=== PATIENT | male | born 1970 | race Hispanic/Latino ===

== ENCOUNTER 2022-05-27 14:07 | Inpatient (IN) | payer OTHER, BC ==
--- NOTE | 2022-05-27 14:37 | Emergency Department Report ---
ED Neuro Deficit HPI - General Chief Complaint: Headache Stated Complaint: WK COMP/LT SIDE NUMB Time Seen by Provider: 05/27/22 14:32 Source: patient, family, EMS ( EMS documentation not available at time of chart dictation ), RN notes reviewed Mode of arrival: Stretcher Limitations: Physical Limitation - History of Present Illness Initial Comments: The patient was evaluated in the emergency department for symptoms described in the history of present illness. He/she was evaluated in the context of the global COVID-19 pandemic, which necessitated consideration that the patient might be at risk for infection with the virus that causes COVID-19. In stitutional protocols and algorithms that pertain to the evaluation of patients at risk for COVID-19 are in a state of rapid change based on information released by regulatory bodies including the CDC and federal and state organizations. These policies and algorithms were followed during the patient's care in the emergency department. Please note that these policies, procedures and recommendations changed on a rapid basis. This patient is a 51-year-old gentleman. He reports a distant history of stroke, with prior left-sided weakness, which has since resolved. 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 Then, at approximately 11:30 AM, he developed left arm and left leg weakness and numbness. He reported a mild headache. Reportedly had normal Accu-Chek in the field. Patient denies recent trauma, surgery, hematemesis, bright red blood per rectum, systemic anticoagulation. He reports no contraindications to tPA. A code stroke was called overhead during my immediate evaluation of this patient. He was seen in consultation with stroke neurology, and we both agree that tPA is indicated. Extensive discussion had with patient and family member at the bedside, regarding risks, benefits of tPA, specifically, risk of hemorrhagic conversion and allergic reaction. Patient and family member provided verbal i nformed consent for tPA. I personally administered patient's tPA bolus at the bedside. The patient denies contraindications to tPA He is certain that his last known well time is 11:30 AM today. -: Sudden, hour(s) Location: left arm, left leg Presenting Symptoms: Present: Weak/Paralyzed One Side. Absent: Blurred/Loss of Vision, Unable to Speak Clearly, Altered Mental Status History of same: Yes Severity: moderate Quality: weak, numb Improves With: none Worsens With: none On Anticoagulants: No Context: sudden onset - Related Data Home Medications: Previous Rx's Medication Instructions Recorded Last Taken Type Cyclobenzaprine [Flexeril] 10 mg PO TID PRN #30 tablet 08/02/18 Unknown Rx Naproxen [Naprosyn] 500 mg PO BID #14 tablet 08/02/18 Unknown Rx Allergies/Adverse Reactions: Allergies Allergy/AdvReac Type Severity Reaction Status Date / Time No Known Allergies Allergy Unverified 08/02/18 19:32 ED Review of Systems ROS: Stated complaint: WK COMP/LT SIDE NUMB Other details as noted in HPI Constitutional: denies: fever Eyes: denies: eye discharge, vision change ENT: denies: epistaxis Respiratory: denies: cough Cardiovascular: denies: chest pain Gastrointestinal: denies: abdominal pain, hematemesis, melena, hematochezia Genitourinary: denies: hematuria Neurological: weakness, numbness Psychiatric: anxiety ED Past Medical Hx - Past Medical History Hx Hypertension: Yes Hx Diabetes: Yes Additional medical history: heart disease - Surgical History Additional Surgical History: bilateral knees - Social History Smoking Status: Never Smoker Substance Use Type: None - Medications Home Medications: Home Medications Medication Instructions Recorded Confirmed Last Taken Type Cyclobenzaprine [Flexeril] 10 mg PO TID PRN #30 tablet 08/02/18 Unknown Rx Naproxen [Naprosyn] 500 mg PO BID #14 tablet 08/02/18 Unknown Rx ED Neuro Physical Exam - General Limitations: Physical Limitation General appearance: alert, anxious, obese Suspected Stroke: Yes - Head Head exam: Present: atraumatic, normocephalic - Eye Eye exam: Present: normal appearance, EOMI, other (Visual acuity intact to finger counting and color perception at a close distance). Absent: nystagmus - ENT ENT exam: Present: normal exam, normal orophraynx, mucous membranes moist, normal external ear exam - Neck Neck exam: Present: normal inspection, full ROM. Absent: tenderness, meningismus - Respiratory Respiratory exam: Present: normal lung sounds bilaterally. Absent: respiratory distress, wheezes, rales, rhonchi, stridor, decreased breath sounds - Cardiovascular Cardiovascular Exam: Present: regular rate, normal rhythm, normal heart sounds. Absent: bradycardia, tachycardia, irregular rhythm, systolic murmur, diastolic murmur, rubs, gallop - GI/Abdominal GI/Abdominal exam: Present: soft. Absent: distended, tenderness, guarding, rebound, rigid - Rectal Rectal exam: Present: deferred - Extremities Exam Extremities exam: Present: normal inspection, full ROM (Right arm and right leg.), other (2+ pulses noted in the bilateral upper and lower extremities. Th ere is no palpable cord. negative Homans sign. Muscular compartments are soft. The pelvis is stable.). Absent: pedal edema, calf tenderness - Back Exam Back exam: Present: normal inspection. Absent: tenderness, CVA tenderness (R), CVA tenderness (L), paraspinal tenderness, vertebral tenderness - Neurological Exam Neurological exam: Present: alert, oriented X3, motor sensory deficit (There is decrease in station to light touch left arm and left leg. There is 4 out of 5 strength left arm and left leg.) - NIHSS Assessment Interval: Baseline 1a. Level of Consciousness: alert/keenly responsive 1b. LOC Questions: answers both correctly 1c. LOC Commands: performs tasks correctly 2. Best Gaze: normal 3. Visual: no visual loss 4. Facial Palsy: normal symmetrical movement 5b. Motor Arm Right: no drift 5a. Motor Arm Left: drift 6a. Motor Leg Left: drift 6b. Motor Leg Right: no drift 7. Limb Ataxia: absent 8. Sensory: mild/moderate sensory loss 9. Best Language: no aphasia 10. Dysarthria: normal 11. Extinction/Inattention: no abnormality Total Score: 3 Stroke Severity: Minor Stroke - Psychiatric Psychiatric exam: Present: anxious - Skin Skin exam: Present: warm, dry, intact, normal color. Absent: rash ED Course Vital Signs 05/27/22 05/27/22 05/27/22 14:16 14:31 15:09 Temperature 98.1 F Pulse Rate 71 65 69 Pulse Rate [ Right Arm] Respiratory 18 10 L 15 Rate Respiratory Rate [Right Arm ] Blood Pressure 174/87 Blood Pressure 160/90 [Left] Blood Pressure [Right Arm] O2 Sat by Pulse 97 Oximetry O2 Sat by Pulse Oximetry [ Right Arm] 05/27/22 05/27/22 05/27/22 15:15 15:30 15:31 Temperature Pulse Rate 66 59 L 58 L Pulse Rate [ 60 Right Arm] Respiratory 13 13 Rate Respiratory 16 Rate [Right Arm ] Blood Pressure 151/90 139/75 139/75 Blood Pressure [Left] Blood Pressure 151/80 [Right Arm] O2 Sat by Pulse 98 96 Oximetry O2 Sat by Pulse 96 Oximetry [ Right Arm] 05/27/22 05/27/22 05/27/22 15:45 16:06 16:08 Temperature Pulse Rate 57 L Pulse Rate [ 61 57 L Right Arm] Respiratory 19 Rate Respiratory 16 19 Rate [Right Arm ] Blood Pressure Blood Pressure 127/82 [Left] Blood Pressure 140/85 127/82 [Right Arm] O2 Sat by Pulse 96 Oximetry O2 Sat by Pulse 96 96 Oximetry [ Right Arm] 05/27/22 05/27/22 05/27/22 16:16 17:01 17:26 Temperature Pulse Rate Pulse Rate [ 52 L 52 L Right Arm] Respiratory Rate Respiratory 9 L 15 Rate [Right Arm ] Blood Pressure Blood Pressure [Left] Blood Pressure 127/76 154/82 [Right Arm] O2 Sat by Pulse 99 Oximetry O2 Sat by Pulse 98 100 Oximetry [ Right Arm] 05/27/22 05/27/22 05/27/22 18:00 18:30 19:13 Temperature Pulse Rate Pulse Rate [ 56 L 56 L 54 L Right Arm] Respiratory Rate Respiratory 14 13 14 Rate [Right Arm ] Blood Pressure Blood Pressure [Left] Blood Pressure 137/83 134/74 134/54 [Right Arm] O2 Sat by Pulse Oximetry O2 Sat by Pulse 100 100 99 Oximetry [ Right Arm] - Reevaluation(s) Reevaluation #1: 05/27/22 15:42 Assessment and plan: 51-year-old gentleman, who states that his last known well time is 11:30 AM this morning, presenting with left-sided weakness and numbness, and report of left-sided facial numbness. Patient denies contraindications to tPA. Risks and benefits discussed by myself, and by stroke neurology with patient and family member, who have consented for tPA administration for acute left-sided weakness, cannot exclude stroke. I personally administered tPA bolus, nursing team has administered drip, extensive discussion held with patient and family regarding potential for allergic reaction, and hemorrhagic transformation. Extensively discussed contraindications for tPA with patient and family members, and they are adamant that the patient has no contraindications to tPA. CT angiogram head and neck showed no large vessel occlusion or dissection. He does not require transfer to a comprehensive stroke center. CT scan of the brain is negative for bleeding. Hospital physician, Dr. Earl Cortés to admit to IMS/ICU Awaiting callback from critical care to coordinate admission to the ICU Reevaluation #2: 05/27/22 15:43 Patient did report an electric shock at 9:00 this morning. He reports that he was symptom-free at the electric shock for 2 to 2-1/2 hours. His muscular compartments are soft. No obvious conti noted on the bodies or extremity. Critical care physician, Dr. Contreras will follow in consultation with placement into the ICU. - Lab Data Result diagrams: 05/27/22 15:23 05/27/22 17:18 Lab Results 05/27/22 05/27/22 05/27/22 Range/Units 14:32 15:11 15:23 WBC 9.0 (4.5-11.0) K/mm3 RBC 4.32 (3.65-5.03) M/mm3 Hgb 14.1 (11.8-15.2) gm/dl Hct 40.3 (35.5-45.6) % MCV 93 (84-94) fl MCH 33 H (28-32) pg MCHC 35 H (32-34) % RDW 13.1 L (13.2-15.2) % Plt Count 183 (140-440) K/mm3 Lymph % (Auto) 26.3 (13.4-35.0) % [place] % (Auto) 6.6 (0.0-7.3) % Eos % (Auto) 1.7 (0.0-4.3) % Baso % (Auto) 0.5 (0.0-1.8) % Lymph # (Auto) 2.4 (1.2-5.4) K/mm3 [place] # (Auto) 0.6 (0.0-0.8) K/mm3 Eos # (Auto) 0.2 (0.0-0.4) K/mm3 Baso # (Auto) 0.0 (0.0-0.1) K/mm3 Seg Neutrophils % 64.9 (40.0-70.0) % Seg Neutrophils # 5.9 (1.8-7.7) K/mm3 PT (12.2-14.9) Sec. INR (0.87-1.13) APTT (24.2-36.6) Sec. Thrombin Time (15.1-19.6) Sec. Sodium Potassium Chloride Carbon Dioxide Anion Gap BUN Creatinine Estimated GFR BUN/Creatinine Ratio Glucose POC Glucose 201 H 137 H (70-105) mg/dL Calcium Magnesium Total Bilirubin AST ALT Alkaline Phosphatase Total Creatine Kinase CK-MB (CK-2) CK-MB (CK-2) Rel Index Troponin T Total Protein Albumin Albumin/Globulin Ratio Plasma/Serum Alcohol (0-0.07) % 05/27/22 05/27/22 05/27/22 Range/Units 15:23 15:23 15:23 WBC (4.5-11.0) K/mm3 RBC (3.65-5.03) M/mm3 Hgb (11.8-15.2) gm/dl Hct (35.5-45.6) % MCV (84-94) fl MCH (28-32) pg MCHC (32-34) % RDW (13.2-15.2) % Plt Count (140-440) K/mm3 Lymph % (Auto) (13.4-35.0) % Bos[place] % (Auto) (0.0-7.3) % Eos % (Auto) (0.0-4.3) % Baso % (Auto) (0.0-1.8) % Lymph # (Auto) (1.2-5.4) K/mm3 [place] # (Auto) (0.0-0.8) K/mm3 Eos # (Auto) (0.0-0.4) K/mm3 Baso # (Auto) (0.0-0.1) K/mm3 Seg Neutrophils % (40.0-70.0) % Seg Neutrophils # (1.8-7.7) K/mm3 PT 13.4 (12.2-14.9) Sec. INR 0.92 (0.87-1.13) APTT 26.6 (24.2-36.6) Sec. Thrombin Time 16.1 (15.1-19.6) Sec. Sodium TNR Potassium TNR Chloride TNR Carbon Dioxide TNR Anion Gap TNR BUN TNR Creatinine TNR Estimated GFR TNR BUN/Creatinine Ratio TNR Glucose TNR POC Glucose (70-105) mg/dL Calcium TNR Magnesium TNR Total Bilirubin TNR AST TNR ALT TNR Alkaline Phosphatase TNR Total Creatine Kinase TNR CK-MB (CK-2) TNR CK-MB (CK-2) Rel Index TNR Troponin T TNR Total Protein TNR Albumin TNR Albumin/Globulin Ratio TNR Plasma/Serum Alcohol < 0.01 (0-0.07) % 05/27/22 Range/Units 17:18 WBC (4.5-11.0) K/mm3 RBC (3.65-5.03) M/mm3 Hgb (11.8-15.2) gm/dl Hct (35.5-45.6) % MCV (84-94) fl MCH (28-32) pg MCHC (32-34) % RDW (13.2-15.2) % Plt Count (140-440) K/mm3 Lymph % (Auto) (13.4-35.0) % Bos[place] % (Auto) (0.0-7.3) % Eos % (Auto) (0.0-4.3) % Baso % (Auto) (0.0-1.8) % Lymph # (Auto) (1.2-5.4) K/mm3 [place] # (Auto) (0.0-0.8) K/mm3 Eos # (Auto) (0.0-0.4) K/mm3 Baso # (Auto) (0.0-0.1) K/mm3 Seg Neutrophils % (40.0-70.0) % Seg Neutrophils # (1.8-7.7) K/mm3 PT (12.2-14.9) Sec. INR (0.87-1.13) APTT (24.2-36.6) Sec. Thrombin Time (15.1-19.6) Sec. Sodium 140 Potassium 5.6 H Chloride 104.8 Carbon Dioxide 21 L Anion Gap 20 BUN 14 Creatinine 0.8 Estimated GFR > 60 BUN/Creatinine Ratio 18 Glucose 143 H POC Glucose (70-105) mg/dL Calcium 8.8 Magnesium 2.10 Total Bilirubin 0.30 AST 27 ALT 17 Alkaline Phosphatase 84 Total Creatine Kinase 128 CK-MB (CK-2) 2.2 CK-MB (CK-2) Rel Index 1.7 Troponin T < 0.010 Total Protein 7.2 Albumin 4.1 Albumin/Globulin Ratio 1.3 Plasma/Serum Alcohol (0-0.07) % Vital Signs 05/27/22 05/27/22 14:16 15:30 Temperature 98.1 F Pulse Rate 71 59 L Respiratory 18 Rate Blood Pressure 139/75 Blood Pressure 160/90 [Left] O2 Sat by Pulse 97 Oximetry Lab Results 05/27/22 05/27/22 05/27/22 Range/Units 14:32 15:11 15:23 WBC 9.0 (4.5-11.0) K/mm3 RBC 4.32 (3.65-5.03) M/mm3 Hgb 14.1 (11.8-15.2) gm/dl Hct 40.3 (35.5-45.6) % MCV 93 (84-94) fl MCH 33 H (28-32) pg MCHC 35 H (32-34) % RDW 13.1 L (13.2-15.2) % Plt Count 183 (140-440) K/mm3 Lymph % (Auto) 26.3 (13.4-35.0) % Bos[place] % (Auto) 6.6 (0.0-7.3) % Eos % (Auto) 1.7 (0.0-4.3) % Baso % (Auto) 0.5 (0.0-1.8) % Lymph # (Auto) 2.4 (1.2-5.4) K/mm3 [place] # (Auto) 0.6 (0.0-0.8) K/mm3 Eos # (Auto) 0.2 (0.0-0.4) K/mm3 Baso # (Auto) 0.0 (0.0-0.1) K/mm3 Seg Neutrophils % 64.9 (40.0-70.0) % Seg Neutrophils # 5.9 (1.8-7.7) K/mm3 PT (12.2-14.9) Sec. INR (0.87-1.13) APTT (24.2-36.6) Sec. Thrombin Time (15.1-19.6) Sec. Sodium Potassium Chloride Carbon Dioxide Anion Gap BUN Creatinine Estimated GFR BUN/Creatinine Ratio Glucose POC Glucose 201 H 137 H (70-105) mg/dL Calcium Magnesium Total Bilirubin AST ALT Alkaline Phosphatase Total Creatine Kinase CK-MB (CK-2) CK-MB (CK-2) Rel Index Troponin T Total Protein Albumin Albumin/Globulin Ratio Plasma/Serum Alcohol (0-0.07) % 05/27/22 05/27/22 05/27/22 Range/Units 15:23 15:23 15:23 WBC (4.5-11.0) K/mm3 RBC (3.65-5.03) M/mm3 Hgb (11.8-15.2) gm/dl Hct (35.5-45.6) % MCV (84-94) fl MCH (28-32) pg MCHC (32-34) % RDW (13.2-15.2) % Plt Count (140-440) K/mm3 Lymph % (Auto) (13.4-35.0) % Bos[place] % (Auto) (0.0-7.3) % Eos % (Auto) (0.0-4.3) % Baso % (Auto) (0.0-1.8) % Lymph # (Auto) (1.2-5.4) K/mm3 [place] # (Auto) (0.0-0.8) K/mm3 Eos # (Auto) (0.0-0.4) K/mm3 Baso # (Auto) (0.0-0.1) K/mm3 Seg Neutrophils % (40.0-70.0) % Seg Neutrophils # (1.8-7.7) K/mm3 PT 13.4 (12.2-14.9) Sec. INR 0.92 (0.87-1.13) APTT 26.6 (24.2-36.6) Sec. Thrombin Time 16.1 (15.1-19.6) Sec. Sodium TNR Potassium TNR Chloride TNR Carbon Dioxide TNR Anion Gap TNR BUN TNR Creatinine TNR Estimated GFR TNR BUN/Creatinine Ratio TNR Glucose TNR POC Glucose (70-105) mg/dL Calcium TNR Magnesium TNR Total Bilirubin TNR AST TNR ALT TNR Alkaline Phosphatase TNR Total Creatine Kinase TNR CK-MB (CK-2) TNR CK-MB (CK-2) Rel Index TNR Troponin T TNR Total Protein TNR Albumin TNR Albumin/Globulin Ratio TNR Plasma/Serum Alcohol < 0.01 (0-0.07) % 05/27/22 Range/Units 17:18 WBC (4.5-11.0) K/mm3 RBC (3.65-5.03) M/mm3 Hgb (11.8-15.2) gm/dl Hct (35.5-45.6) % MCV (84-94) fl MCH (28-32) pg MCHC (32-34) % RDW (13.2-15.2) % Plt Count (140-440) K/mm3 Lymph % (Auto) (13.4-35.0) % [place] % (Auto) (0.0-7.3) % Eos % (Auto) (0.0-4.3) % Baso % (Auto) (0.0-1.8) % Lymph # (Auto) (1.2-5.4) K/mm3 [place] # (Auto) (0.0-0.8) K/mm3 Eos # (Auto) (0.0-0.4) K/mm3 Baso # (Auto) (0.0-0.1) K/mm3 Seg Neutrophils % (40.0-70.0) % Seg Neutrophils # (1.8-7.7) K/mm3 PT (12.2-14.9) Sec. INR (0.87-1.13) APTT (24.2-36.6) Sec. Thrombin Time (15.1-19.6) Sec. Sodium 140 Potassium 5.6 H Chloride 104.8 Carbon Dioxide 21 L Anion Gap 20 BUN 14 Creatinine 0.8 Estimated GFR > 60 BUN/Creatinine Ratio 18 Glucose 143 H POC Glucose (70-105) mg/dL Calcium 8.8 Magnesium 2.10 Total Bilirubin 0.30 AST 27 ALT 17 Alkaline Phosphatase 84 Total Creatine Kinase 128 CK-MB (CK-2) 2.2 CK-MB (CK-2) Rel Index 1.7 Troponin T < 0.010 Total Protein 7.2 Albumin 4.1 Albumin/Globulin Ratio 1.3 Plasma/Serum Alcohol (0-0.07) % - EKG Data -: EKG Interpreted by Nh EKG shows normal: sinus rhythm Rate: normal When compared to previous EKG there are: previous EKG unavailable 05/27/22 15:40 The EKG is interpreted at 14: 29 Sinus rhythm, with a rate of 67 bpm. There is motion artifact. Normal axis, normal intervals, left ventricular hypertrophy, and normal P wave axis. This is an abnormal EKG. This is not a STEMI - Radiology Data Radiology results: pending, report reviewed, image reviewed CT BRAIN: 05/27/2022 INDICATION / CLINICAL INFORMATION: Electric shock. Weakne ss. COMPARISON: None available. FINDINGS: BRAIN/INTRACRANIAL STRUCTURES: CT images of the brain demonstrate no evidence of acute abnormality. Ventricles and sulci are normal in size and shape. There is no evidence of ischemic injury, hemorrhage, or mass. There are no abnormal extra-axial fluid collections. EXTRACRANIAL STRUCTURES: Unremarkable. IMPRESSION: No acute abnormality. All CT scans at this location are performed using dose reduction to ALARA by means of automated exposure control. Signer Name: David Riddle MD Signed: 05/27/2022 2:23 PM Workstation Name: [id number] CTA NECK WITH CONTRAST INDICATION / CLINICAL INFORMATION: Left-sided deficits suspected stroke. COMPARISON: None. TECHNIQUE: Routine CTA of the neck is performed. 3-D/MIP reformats were postprocessed. Percentage stenosis is determined by direct quantitative measurements of diseased internal carotid artery diameter compared with normal distal internal carotid artery reference segments or by criteria similar to NASCET where applicable. All CT scans at this location are performed using CT dose reduction for ALARA by means of automated exposure control. CONTRAST: 100 ml of Omnipaque 350 FINDINGS: Carotid bifurcations: No evidence of carotid bifurcation stenosis Carotid arteries: No significant abnormality. Cervical vertebral arteries: No significant abnormality. Aortic arch: No significant abnormality. None. IMPRESSION: No significant abnormality. Signer Name: David Riddle MD Signed: 05/27/2022 2:30 PM Workstation Name: [id number] [address] [place] [address] Cat Scan Report Signed Patient: LINDSAY CA MR#: [id number] : 1970 Acct:[id number] Age/Sex: 51 / M ADM Date: 05/27/22 Loc: ED Attending Dr: Ordering Physician: LINDSAY BELTRAN MD Date of Service: 05/27/22 Procedure(s): CT angio head Accession Number(s): [id number] cc: LINDSAY BELTRAN MD CTA HEAD WITH CONTRAST 05/27/2022 HISTORY: Left-sided deficits suspected stroke. COMPARISON: None. TECHNIQUE: All CT scans at this location are performed using CT dose reduction for ALARA by means of automated exposure control.. 3-D/MIP reformats postprocessed. Percentage stenosis is determined by direct quantitative measurements of diseased internal carotid artery diameter compared with normal distal internal carotid artery reference segments or by criteria similar to NASCET where applicable. CONTRAST: 100 ml of Omnipaque 350 FINDINGS: CTA HEAD: Intracranial vertebral arteries: No significant abnormality. Basilar artery: No significant abnormality. Posterior cerebral arteries: No significant abnormality. Intracranial internal carotid arteries: No significant abnormality. Anterior cerebral arteries: No significant abnormality. Middle cerebral arteries: No significant abnormality. Dural venous sinuses:Not optimally opacified. No significant abnormality. Additional findings: None. IMPRESSION: 1. No significant abnormality. Signer Name: David Riddle MD Signed: 05/27/2022 3:31 PM Workstation Name: [id number] Transcribed By: CHAKA Dictated By: David Riddle MD Electronically Authenticated By: David Riddle MD Signed Date/Time: 05/27/22 1531 DD/ 1530 TD/TT: - Core Measures Measure Exclusions: not indicated - Thrombolytic Inclusion/Exclusion Thrombolytic Inclusion Criteria: Ischemic Stroke Onset< 3h, NIH Stroke Scale Def icit, Negative CT Scan for ICH, Age 18 or Older, Glucose of 50-400mg/dl Critical Care Time: Yes Critical care time in (mins) excluding proc time.: 45 Critical care attestation.: If time is entered above; I have spent that time in minutes in the direct care of this critically ill patient, excluding procedure time. ED Disposition Clinical Impression: Left-sided weakness, Electric shock Disposition: ADMITTED INPATIENT Is pt being admited?: Yes Does the pt Need Aspirin: No Condition: Critical
--- NOTE | 2022-05-27 15:01 | Consultation ---
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 Symptoms started around 11am with left-sided numbness & tingling. Last Known Normal: I have collected independent history specific to time last normal or last known well. We have collaborated with the provider and at this time, we have the most current timeline with the information that is available. 11am Duration: constant hours Associated Symptoms: headache # Scores Time of exam and NIHSS ( Time): 05/27/2022, 14:40 Level of Consciousness 1a: [0] = Alert; keenly responsive LOC Questions 1b: [0] = Answers both questions correctly LOC Commands 1c: [0] = Performs both tasks correctly Best Gaze 2: [0] = Normal Visual 3: [0] = No visual loss Facial Palsy 4: [0] = Normal symmetrical movements Motor Arm Left 5a: [1] = Drift Motor Arm Right 5b: [0] = No drift Motor Leg Left 6a: [1] = Drift Motor Leg Right 6b: [0] = No drift Limb Ataxia 7: [0] = Absent Sensory 8: [1] = [id number]-jk-[id number] sensory loss Best Language 9: [0] = No aphasia Dysarthria 10: [0] = Normal Extinction and Inattention 11: [0] = No abnormality NIHSS Total: 3 Modified Fannin Scale (mRS) pre-stroke: [0] = No Symptoms Modified Sarah Scale total: 0 VAN Screening: Negative # Exam SBP: 160 DBP: 90 Motor: Difficulty raising left arm & Sensory: decreased sensation left face decreased sensation left upper extremity decreased sensation left lower extremity # ROS Pulmonary: no shortness of breath Cardiovascular: chest pain # PMH-FH-SH Past Medical History: Diabetes hypertension stroke Social History: smoker Medications: aspirin Allergies: NKDA # Data Glucose: [address] personally read by me (Eastern Time): 05/27/2022, 14:[address]: no bleed preliminarily reviewed by me, please refer to radiology read for official reading # Assessment Impression: Possible stroke, versus injury related to reported electrocution # Plan Thrombolytic/Intervention: IV thrombolytic and possible IA candidate Thrombolytic Dosing: IV alteplase 0.9 mg/kg, max dose 90 mg; 10% of dose given over 1 minute IVP, remaining 90% given as infusion over 1 hour Possible IA Candidate: CTA pending Suspect small-vessel/ lacunar disease based on clinical presentation, though Time IV Thrombolytic Recommended ( Time): 05/27/2022, 14:58 Labs: CBC comprehensive metabolic panel ESR hemoglobin A1c lipid panel troponin TSH urine drug screen ua Imaging: (urgency: STAT): CT Angiogram Head and CT Angiogram Neck AND call back with results if abnormal Imaging: (urgency: routine): MRI Brain without contrast Diagnostic Test: echo without bubble study EEG Therapy/Evaluation: NPO until swallow evaluation PT/OT evaluation Medication: clopidogrel (Plavix) 75 mg daily start statin with goal of LDL < 70 migraine cocktail: Toradol 30 mg IV + Benadryl 25 mg IV + antiemetic IV DVT Prophylaxis: SCD chemical DVT prophylaxis Thrombolytic Administration Recommendations: I reviewed the risks/benefits/alternatives of IV thrombolytic therapy with the patient. They understand there is potential of life threatening hemorrhage from IV thrombolysis. I stated that I believe benefits outweighs risk. They wish to proceed with IV thrombolytic therapy. I have collected independent history specific to time last normal or last known well. We have collaborated with the ED provider and at this time, we have the most current timeline with the information that is available. BP goal< 180/105 for 24hrs post Thrombolytic administration Use Labetolol 10-20mg IV prn or Nicardipine gtt to maintain BP parameters No antiplatelets or anticoagulants for next 24 hrs unless indicated for emergent IA procedure or other life threatening situation symptoms deemed to be disabling, despite low NIHSS Given the current persistent symptoms & reported lack of exclusion conditions, the risks & benefits of thrombolysis were discussed with the patient. Alteplase is FDA-approved for treating acute ischemic strokes & patients generally do better with treatment than without. Other: If patient has any neurological deterioration please call me back immediately telemetry monitoring I have discussed my recommendations with the referring provider Additional Recommendations: Counseled tobacco cessation Disposition: admit # Logistics Telemedicine: Interactive 2 way audio and visual telecommunication technology was utilized during this visit # Demographics First Name: delfina Last Name: paola Facility: [facility] Medications and Allergies Allergies Allergy/AdvReac Type Severity Reaction Status Date / Time No Known Allergies Allergy Unverified 08/02/18 19:32 Home Medications Medication Instructions Recorded Confirmed Last Taken Type Cyclobenzaprine [Flexeril] 10 mg PO TID PRN #30 tablet 08/02/18 Unknown Rx Naproxen [Naprosyn] 500 mg PO BID #14 tablet 08/02/18 Unknown Rx Physical Examination - Vital Signs Vital Signs: Vital Signs Temp Pulse Resp BP Pulse Ox 98.1 F 71 18 160/90 97 05/27/22 14:16 05/27/22 14:16 05/27/22 14:16 05/27/22 14:16 05/27/22 14:16
[2022-05-27] MEDS ORDERED: ALTEPLASE 100 MG INJ KIT IV ONE ×2 (15:04)
[2022-05-27] MEDS ORDERED: SODIUM CHLORIDE 0.9% 50 ML IVPB IV ONE (15:04)
--- NOTE | 2022-05-27 15:27 | Cat Scan Report ---
CT BRAIN: 05/27/2022 INDICATION / CLINICAL INFORMATION: Electric shock. Weakness. COMPARISON: None available. FINDINGS: BRAIN/INTRACRANIAL STRUCTURES: CT images of the brain demonstrate no evidence of acute abnormality. Ventricles and sulci are normal in size and shape. There is no evidence of ischemic injury, hemorrhage, or mass. There are no abnormal extra-axial fluid collections. EXTRACRANIAL STRUCTURES: Unremarkable. IMPRESSION: No acute abnormality. All CT scans at this location are performed using dose reduction to ALARA by means of automated expos ure control. Signer Name: David Riddle MD Signed: 05/27/2022 3:23 PM Workstation Name: [id number]
--- NOTE | 2022-05-27 15:34 | Cat Scan Report ---
CTA NECK WITH CONTRAST INDICATION / CLINICAL INFORMATION: Left-sided deficits suspected stroke. COMPARISON: None. TECHNIQUE: Routine CTA of the neck is performed. 3-D/MIP reformats were postprocessed. Percentage st enosis is determined by direct quantitative measurements of diseased internal carotid artery diameter compared with normal distal internal carotid artery reference segments or by criteria similar to ARMANDO CET where applicable. All CT scans at this location are performed using CT dose reduction for ALARA b y means of automated exposure control. CONTRAST: 100 ml of Omnipaque 350 FINDINGS: Carotid bifurcations: No evidence of carotid bifurcation stenosis Carotid arteries: No significant abnormality. Cervical vertebral arteries: No significant abnormality. Aortic arch: No significant abnormality. None. IMPRESSION: No significant abnormality. Signer Name: David Riddle MD Signed: 05/27/2022 3:30 PM Workstation Name: [id number]
--- NOTE | 2022-05-27 15:35 | Cat Scan Report ---
CTA HEAD WITH CONTRAST 05/27/2022 HISTORY: Left-sided deficits suspected stroke. COMPARISON: None. TECHNIQUE: All CT scans at this location are performed using CT dose reduction for ALARA by means of automated exposure control.. 3-D/MIP reformats postprocessed. Percentage stenosis is determined by d irect quantitative measurements of diseased internal carotid artery diameter compared with normal dis sacha internal carotid artery reference segments or by criteria similar to NASCET where applicable. CONTRAST: 100 ml of Omnipaque 350 FINDINGS: CTA HEAD: Intracranial vertebral arteries: No significant abnormality. Basilar artery: No significant abnormality. Posterior cerebral arteries: No significant abnormality. Intracranial internal carotid arteries: No significant abnormality. Anterior cerebral arteries: No significant abnormality. Middle cerebral arteries: No significant abnormality. Dural venous sinuses:Not optimally opacified. No significant abnormality. Additional findings: None. IMPRESSION: 1. No significant abnormality. Signer Name: David Riddle MD Signed: 05/27/2022 3:31 PM Workstation Name: [id number]
[2022-05-27] MEDS ORDERED: MIDAZOLAM 2 MG/2 ML INJ IV STA (15:39)
[2022-05-27 15:40] LABS: Basophils % (Auto) 0.5 % (0.0-1.8); Eosinophils # (Auto) 0.2 K/mm3 (0.0-0.4); Eosinophils % (Auto) 1.7 % (0.0-4.3); Hematocrit 40.3 % (35.5-45.6); Hemoglobin 14.1 gm/dl (11.8-15.2); Lymphocytes # (Auto) 2.4 K/mm3 (1.2-5.4); Lymphocytes % (Auto) 26.3 % (13.4-35.0); Mean Corpuscular HGB Conc 35 % (32-34); Mean Corpuscular Volume 93 fl (84-94); Monocytes # (Auto) 0.6 K/mm3 (0.0-0.8); Monocytes % (Auto) 6.6 % (0.0-7.3); Platelet Count 183 K/mm3 (140-440); Red Blood Count 4.32 M/mm3 (3.65-5.03); Red Cell Distribution Width 13.1 % (13.2-15.2)
[2022-05-27] MEDS ORDERED: MORPHINE 2 MG/1 ML INJ IV PRN ×2 (15:44→21:16)
[2022-05-27] MEDS ORDERED: MORPHINE 4 MG/1 ML INJ IV PRN (15:44)
[2022-05-27 15:53] LABS: INR 0.92 (0.87-1.13); Partial Thromboplastin Time 26.6 Sec. (24.2-36.6); Thrombin Time 16.1 Sec. (15.1-19.6)
[2022-05-27 16:17] LABS: BUN/Creatinine Ratio TNR; Blood Urea Nitrogen TNR mg/dL (9-20); Calcium TNR mg/dL (8.4-10.2)
[2022-05-27 16:18] LABS: Alanine Aminotransferase TNR units/L (7-56); Albumin TNR g/dL (3.9-5); Creatine Kinase MB TNR ng/mL (0.0-4.0); Hemolysis Index TNR
[2022-05-27 18:33] LABS: Creatine Kinase MB 2.2 ng/mL (0.0-4.0)
[2022-05-27 18:37] LABS: Alanine Aminotransferase 17 units/L (7-56); Albumin 4.1 g/dL (3.9-5); BUN/Creatinine Ratio 18; Blood Urea Nitrogen 14 mg/dL (9-20); Calcium 8.8 mg/dL (8.4-10.2); Hemolysis Index 233
[2022-05-27 20:37] VITALS: BP 120/81
[2022-05-27] MEDS ORDERED: ACETAMINOPHEN 325 MG TAB PO PRN ×2 (20:37→21:16)
[2022-05-27] MEDS ORDERED: NALOXONE 0.4 MG/1 ML INJ IV PRN (20:37)
[2022-05-27] MEDS ORDERED: METOCLOPRAMIDE 10 MG/2 ML INJ IV PRN (21:16)
[2022-05-27] MEDS ORDERED: CYCLOBENZAPRINE 10 MG TAB PO PRN (21:16)
[2022-05-27] MEDS ORDERED: oxyCODONE /ACETAMINOPHEN 5-325MG TAB PO PRN (21:16)
[2022-05-27] MEDS ORDERED: ONDANSETRON 4 MG/2 ML INJ IV PRN (21:16)
--- NOTE | 2022-05-27 21:16 | History and Physical Report ---
History of Present Illness Date of examination: 05/27/22 Date of admission: 05/27/22 20:37 History of present illness: This patient is a 51-year-old gentleman. He reports a distant history of stroke, with prior left-sided weakness, which has since resolved. 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 Then, at approximately 11:30 AM, he developed left arm and left leg weakness and numbness. He reported a mild headache. Reportedly had normal Accu-Chek in the field. Patient denies recent trauma, surgery, hematemesis, bright red blood per rectum, systemic anticoagulation. He reports no contraindications to tPA. A code stroke was called overhead during my immediate evaluation of this patient. He was seen in consultation with stroke neurology, and we both agree that tPA is indicated. Extensive discussion had with patient and family member at the bedside, regarding risks, benefits of tPA, specifically, risk of hemorrhagic conversion and allergic reaction. Patient and family member provided verbal informed consent for tPA. I personally administered patient's tPA bolus at the bedside. The patient denies contraindications to tPA He is certain that his last known well time is 11:30 AM today. -: Sudden, hour(s) Location: left arm, left leg Presenting Symptoms: Present: Weak/Paralyzed One Side. Absent: Blurred/Loss of Vision, Unable to Speak Clearly, Altered Mental Status History of same: Yes Severity: moderate Quality: weak, numb Improves With: none Worsens With: none On Anticoagulants: No Context: sudden onset - Related Data Home Medications: Previous Rx's Medication Instructions Recorded Last Taken Type Cyclobenzaprine [Flexeril] 10 mg PO TID PRN #30 tablet 08/02/18 Unknown Rx Naproxen [Naprosyn] 500 mg PO BID #14 tablet 08/02/18 Unknown Rx Allergies/Adverse Reactions: Allergies Allergy/AdvReac Type Severity Reaction Status Date / Time No Known Allergies Allergy Unverified 08/02/18 19:32 - Past Medical History --Hypertension: Yes --Diabetes: Yes --Additional medical history: heart disease - Surgical History --Additional Surgical History: bilateral knees - Social History --Smoking Status: Never Smoker --Substance Use Type: None - Medications --Home Medications: Home Medications Medication Instructions Recorded Confirmed Last Taken Type Cyclobenzaprine [Flexeril] 10 mg PO TID PRN #30 tablet 08/02/18 Unknown Rx Naproxen [Naprosyn] 500 mg PO BID #14 tablet 08/02/18 Unknown Rx Review of Systems ROS: Stated complaint: WK COMP/LT SIDE NUMB Other details as noted in HPI Constitutional: denies: fever Eyes: denies: eye discharge, vision change ENT: denies: epistaxis Respiratory: denies: cough Cardiovascular: denies: chest pain Gastrointestinal: denies: abdominal pain, hematemesis, melena, hematochezia Genitourinary: denies: hematuria Neurological: weakness, numbness Psychiatric: anxiety Medications and Allergies Allergies Allergy/AdvReac Type Severity Reaction Status Date / Time No Known Allergies Allergy Unverified 08/02/18 19:32 Home Medications Medication Instructions Recorded Confirmed Last Taken Type Cyclobenzaprine [Flexeril] 10 mg PO TID PRN #30 tablet 08/02/18 Unknown Rx Naproxen [Naprosyn] 500 mg PO BID #14 tablet 08/02/18 Unknown Rx Active Meds: Active Medications Acetaminophen (Acetaminophen 325 Mg Tab) 650 mg PO Q6H PRN PRN Reason: Pain MILD(1-3)/Fever >100.5/ECHOLS Naloxone HCl (Naloxone 0.4 Mg/1 Ml Inj) 0.1 mg IV Q2MIN PRN PRN Reason: Res Rate </= 8 or 02 SAT < 92% Sodium Chloride (Sodium Chloride 0.9% 10 Ml Flush Syringe) 10 ml IV BID DANK Sodium Chloride (Sodium Chloride 0.9% 10 Ml Flush Syringe) 10 ml IV PRN PRN PRN Reason: LINE FLUSH Sodium Chloride (Sodium Chloride 0.9% 10 Ml Flush Syringe) 10 ml IV BID DANK Sodium Chloride (Sodium Chloride 0.9% 10 Ml Flush Syringe) 10 ml IV PRN PRN PRN Reason: LINE FLUSH Exam - Constitutional Vitals: Temp Pulse Resp BP Pulse Ox 98.1 F 56 L 16 120/81 97 05/27/22 14:16 05/27/22 20:31 05/27/22 20:31 05/27/22 20:31 05/27/22 20:31 HEART Score - HEART Score Troponin: Troponin T < 0.010 ng/mL (0.00-0.029) 05/27/22 17:18 Results - Labs CBC & Chem 7: 05/27/22 15:23 05/27/22 17:18 Labs: Laboratory Last Values WBC 9.0 K/mm3 (4.5-11.0) 05/27/22 15:23 RBC 4.32 M/mm3 (3.65-5.03) 05/27/22 15:23 Hgb 14.1 gm/dl (11.8-15.2) 05/27/22 15:23 Hct 40.3 % (35.5-45.6) 05/27/22 15:23 MCV 93 fl (84-94) 05/27/22 15:23 MCH 33 pg (28-32) H 05/27/22 15:23 MCHC 35 % (32-34) H 05/27/22 15:23 RDW 13.1 % (13.2-15.2) L 05/27/22 15:23 Plt Count 183 K/mm3 (140-440) 05/27/22 15:23 Lymph % (Auto) 26.3 % (13.4-35.0) 05/27/22 15:23 Rich % (Auto) 6.6 % (0.0-7.3) 05/27/22 15:23 Eos % (Auto) 1.7 % (0.0-4.3) 05/27/22:23 Baso % (Auto) 0.5 % (0.0-1.8) 05/27/22 15:23 Lymph # (Auto) 2.4 K/mm3 (1.2-5.4) 05/27/22 15:23 Rich # (Auto) 0.6 K/mm3 (0.0-0.8) 05/27/22 15:23 Eos # (Auto) 0.2 K/mm3 (0.0-0.4) 05/27/22 15:23 Baso # (Auto) 0.0 K/mm3 (0.0-0.1) 05/27/22 15:23 Seg Neutrophils % 64.9 % (40.0-70.0) 05/27/22 15:23 Seg Neutrophils # 5.9 K/mm3 (1.8-7.7) 05/27/22 15:23 PT 13.4 Sec. (12.2-14.9) 05/27/22 15:23 INR 0.92 (0.87-1.13) 05/27/22 15:23 APTT 26.6 Sec. (24.2-36.6) 05/27/22 15:23 Thrombin Time 16.1 Sec. (15.1-19.6) 05/27/22 15:23 Sodium 140 mmol/L (137-145) 05/27/22 17:18 Potassium 5.6 mmol/L (3.6-5.0) H 05/27/22 17:18 Chloride 104.8 mmol/L (98-107) 05/27/22 17:18 Carbon Dioxide 21 mmol/L (22-30) L 05/27/22 17:18 Anion Gap 20 mmol/L 05/27/22 17:18 BUN 14 mg/dL (9-20) 05/27/22 17:18 Creatinine 0.8 mg/dL (0.8-1.3) 05/27/22 17:18 Estimated GFR > 60 ml/min 05/27/22 17:18 BUN/Creatinine Ratio 18 % 05/27/22 17:18 Glucose 143 mg/dL (75-100) H 05/27/22 17:18 POC Glucose 137 mg/dL (70-105) H 05/27/22 15:11 Calcium 8.8 mg/dL (8.4-10.2) 05/27/22 17:18 Magnesium 2.10 mg/dL (1.7-2.3) 05/27/22 17:18 Total Bilirubin 0.30 mg/dL (0.1-1.2) 05/27/22 17:18 AST 27 units/L (5-40) 05/27/22 17:18 ALT 17 units/L (7-56) 05/27/22 17:18 Alkaline Phosphatase 84 units/L (35-129) 05/27/22 17:18 Total Creatine Kinase 128 units/L (55-170) 05/27/22 17:18 CK-MB (CK-2) 2.2 ng/mL (0.0-4.0) 05/27/22 17:18 CK-MB (CK-2) Rel Index 1.7 (0-4) 05/27/22 17:18 Troponin T < 0.010 ng/mL (0.00-0.029) 05/27/22 17:18 Total Protein 7.2 g/dL (6.3-8.2) 05/27/22 17:18 Albumin 4.1 g/dL (3.9-5) 05/27/22 17:18 Albumin/Globulin Ratio 1.3 % 05/27/22 17:18 Plasma/Serum Alcohol < 0.01 % (0-0.07) 05/27/22 15:23
[2022-05-27] MEDS ORDERED: SODIUM CHLORIDE 0.9% 1000 ML 1,000 ML IV SCH (21:30)
[2022-05-27] MEDS ORDERED: INSULIN LISPRO 100 UNIT/ML SUB-Q SCH (22:00)
[2022-05-27] MEDS ORDERED: FAMOTIDINE 20 MG/2 ML INJ IV SCH (22:00)
[2022-05-29] MEDS ORDERED: ASPIRIN 325 MG TAB PO SCH (10:00)
--- NOTE | 2022-05-29 10:21 | Electrocardiograph Report ---
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
== END 2022-05-27 21:32 | disposition left against medical advice (07) | DRG 62 ==
LOC: ED 14:07 → CC1 20:37 → OBSVTOIN 20:37
PROVIDERS: ADMIT Internal Medicine; ATTEND Internal Medicine
DX: I63.9 Cerebral infarction, unspecified (principal); I69.354 Hemiplegia and hemiparesis following cerebral infarction affecting left non-dominant side; Z53.29 Procedure and treatment not carried out because of patient's decision for other reasons; E11.9 Type 2 diabetes mellitus without complications; I10 Essential (primary) hypertension; W85.XXXA Exposure to electric transmission lines, initial encounter; Y93.89 Activity, other specified; Y92.89 Other specified places as the place of occurrence of the external cause; Y99.0 Civilian activity done for income or pay; T75.4XXA Electrocution, initial encounter
CPT/HCPCS: 36415; 70450; 70496; 70498; 80053; 80320; 82550; 82553; 82962; 83735; 84484; 85025; 85610; 85670; 85730; 93005; G0378; G0480; J2997; Q9967